=== PATIENT | male | born 1990 | race Caucasian/White ===

== ENCOUNTER 2019-12-31 09:09 | Outpatient (CLI) | payer BC, OTHER | END 2019-12-31 23:59 | disposition home or self-care (01) | LOC: CFH 09:09 | PROVIDERS: ATTEND Internal Medicine Cardiovascular Disease | DX: Z13.6 Encounter for screening for cardiovascular disorders (principal); R94.31 Abnormal electrocardiogram [ECG] [EKG]; M95.4 Acquired deformity of chest and rib; Z82.69 Family history of other diseases of the musculoskeletal system and connective tissue | CPT/HCPCS: 75571 ==